=== PATIENT | female | born 1975 | race Caucasian/White ===

== ENCOUNTER 2021-01-07 13:53 | Emergency (ER) | payer OTHER, SELFPAY ==
[2021-01-07] VITALS (17 sets, daily range): BP systolic 107–135; BP diastolic 65–91; PULSE 64–92; RESP 12–20; TEMP 37; O2SAT 98–100
--- NOTE | ~2021-01-07 | XR_ITS ---
EXAMINATION: XR chest 1V portable DATE: 01/07/2021 14:29 INDICATION: Syncope. Chest tightness. TECHNIQUE: frontal view of the chest was obtained. COMPARISON: none FINDINGS: The lungs are clear with no focal airspace opacities, pulmonary edema, pleural effusion or pneumothor ax. The cardiomediastinal silhouette is normal. Visualized bones and soft tissues are unremarkable. IMPRESSION: 1. No acute cardiopulmonary disease. Reviewed, dictated and finalized at location A.
--- NOTE | 2021-01-07 14:02 | ECG_ITS ---
Measurements Intervals [place] Rate: 63 P: 44 CO: 163 QRS: -8 QRSD: 86 T: 23 QT: 426 QTc: 437 Interpretive Statements SINUS RHYTHM BASELINE ARTIFACT- I, II, III, AVR, AVL, AVF, V1-V6 NORMAL ECG Electronically Signed On 01-07-2021 14:40:09 CDT by Julián Longoria D.O.
--- NOTE | 2021-01-07 14:22 | ED.SYNCOPE ---
HPI - Syncope General Chief Complaint: Syncope Stated Complaint: 2 syncopal episodes Time Seen by Provider: 01/07/21 14:03 Source: patient, EMS and RN notes reviewed Mode of arrival: EMS Limitations: no limitations History of Present Illness HPI narrative: This is a healthy 45 year old female who presents for evaluation of a syncopal episode. She states she just received her first dose of covid vaccine when she developed lightheadedness. She reports her head felt heavy so she laid her head on lap. She woke up with people surrounding her because she passed out. EMS reports patient did not want to come but she had another syncopal episode. EMS gave patient LR 250 ml bolus. She feels better but she still has some dizziness. She report throat dryness and some chest tightness. She thinks she got herself worked up. She has had syncopal episodes in the past when she has panic attacks. She reports she felt prior to receiving vaccine today. She has not eaten all day. Related Data Allergies Allergy/AdvReac Type Severity Reaction Status Date / Time No Known Allergies Allergy Verified 01/07/21 14:01 Review of Systems Review of Systems: All systems reviewed & are unremarkable except as noted in HPI and below PMFSH Past Medical History Medical History (Updated 01/07/21 @ 16:12 by Laura Woodward MD) Anxiety Surgical History Surgical History (Updated 01/07/21 @ 14:28 by Laura Woodward MD) H/O tubal ligation History of tonsillectomy and adenoidectomy Social History Social History (Updated 01/07/21 @ 14:28 by Laura Woodward MD) Smoking status: Never smoker Alcohol intake: never Substance use: never Exam Const: General: no acute distress and alert Orientation/consciousness: patient oriented x3 HENMT: Head: normocephalic and atraumatic Face and sinus: normal facial exam, sinuses nontender and face symmetric Mouth: Yes Normal oral and palatal mucosa present, Yes lip normal, Yes oropharynx normal and Yes moist mucous membranes Eyes: Pupils: Equal, round and reactive pupils present EOM: EOMs intact bilaterally Chest: Chest palpation & inspection: normal inspection of the chest Resp: Effort & Inspection: normal respiratory effort and no retractions Auscultation: clear to auscultation bilaterally Cardio: Rate: regular rate Heart sounds: no murmurs GI: GI Palp: Yes Soft to palpation, No Tenderness to palpation present (GI) and No Guarding due to palpation present (GI) Auscultation: normal bowel sounds Back/Spine/Pelvis: Back: no CVA tenderness Skin: General skin exam: normal color Rashes: no rashes Neuro: General: patient oriented x3, moves all extremities and CN's II-XI intact bilaterally Extrem: General: normal to inspection Psych: Mental Status: mental status grossly normal Affect: normal affect Course Reevaluation(s) Reevaluation #1: Patient reports she feels better and she is ready to go home. Labs were unremarkable Date: 01/07/21 Time: 16:09 Vital Signs Vital signs: Vital Signs Temperature 98.6 F 01/07/21 13:55 Pulse Rate 66 01/07/21 13:55 Respiratory Rate 18 01/07/21 13:55 Blood Pressure 107/65 01/07/21 13:55 Pulse Oximetry 100 01/07/21 13:55 Temperature 98.6 F 01/07/21 13:55 Pulse Rate 79 01/07/21 16:15 Respiratory Rate 20 01/07/21 16:15 Blood Pressure 135/91 H 01/07/21 16:15 Pulse Oximetry 98 01/07/21 16:15 MDM - Syncope Lab Data Attestation: I reviewed the patient's lab results. Result diagrams: 01/07/21 14:42 01/07/21 14:42 Labs: Lab Results 01/07/21 01/07/21 01/07/21 Range/Units 14:42 14:42 14:42 WBC 7.9 (4.5-10.0) K/mm3 RBC 3.76 L (4.2-5.4) M/mm3 Hgb 11.5 L (12.0-15.0) g/dL Hct 34.2 L (37.0-47.0) % MCV 91.0 (80-100) fl MCH 30.6 (26-34) pg MCHC 33.6 (32-36) g/dl RDW 13.4 (11.5-14.5) % Plt Count 321 (150-375) k/mm3 MPV 10.1 (7.4
[2021-01-07] MEDS: LACTATED RINGERS 1,000 ML 999 ML IV CONT (14:29)
[2021-01-07 14:52] LABS: Basophils Percent Auto 0.4 % (0.2-1.2); Eosinophils Absolute Auto 0.1 K/mm3 (0-0.3); Eosinophils Percent Auto 0.9 % (0-4.4); Hematocrit 34.2 % (37.0-47.0); Hemoglobin 11.5 g/dL (12.0-15.0); Immature Granulocyte Absolute 0.02 K/mm3 (0.00-0.031); Immature Granulocyte Percent A 0.3 % (0-0.5); Lymphocytes Absolute Auto 1.24 K/mm3 (0.9-3.2); Lymphocytes Percent Auto 15.7 % (18.3-44.2); Mean Corpuscular HGB Conc 33.6 g/dl (32-36); Mean Corpuscular Hemoglobin 30.6 pg (26-34); Mean Platelet Volume 10.1 fl (7.4-10.4); Monocytes Absolute Auto 0.5 K/mm3 (0.1-0.6); Monocytes Percent Auto 6.3 % (2.6-8.5); Neutrophils Percent Auto 76.4 % (45.5-73.1); Platelet Count Result 321 k/mm3 (150-375); Red Blood Count 3.76 M/mm3 (4.2-5.4); Red Cell Distribution Width 13.4 % (11.5-14.5); White Blood Count 7.9 K/mm3 (4.5-10.0)
[2021-01-07 14:59] LABS: INR 1.1
[2021-01-07 15:00] LABS: Partial Thromboplastin Time 21.3 SECONDS (22.3-36.8)
[2021-01-07 15:02] LABS: D Dimer 0.29 ug/mL (<0.48)
[2021-01-07 15:06] LABS: Alanine Aminotransferase 16 U/L (4-35); Albumin Level 4.2 g/dL (3.5-5.1); Alkaline Phosphatase 56 U/L (38-126); Anion Gap 8 mmol/L (8-16); Aspartate Amino Transferase 25 U/L (14-36); Bilirubin,Total 0.7 mg/dL (0.2-1.3); Blood Urea Nitrogen 11 mg/dL (7-17); Calcium 8.9 mg/dL (8.4-10.2); Carbon Dioxide 25 mmol/L (22-30); Chloride 101 mmol/L (98-107); Estimated CRCL calculation 91 ml/min; Estimated Glomerular Filt Rate > 60; Glucose 102 mg/dL (65-110); Magnesium 1.6 mg/dL (1.6-2.3); Sodium 134 mmol/L (137-145)
[2021-01-07 15:12] LABS: Add Urine Microscopic? YES; Appearance Urine Cloudy (Clear); Bacteria Urine Trace /hpf; Bilirubin Urine Negative (Negative); Blood Urine Negative (Negative); Color Urine Yellow (Yellow); Glucose Urine UA Negative (Negative); Ketones Urine Trace mg/dL (Negative); Leukocyte Esterase Ur Negative LEU/UL (Negative); Mucus Urine Few /lpf; Nitrate Urine Negative (Negative); Protein Urine 1+ mg/dL (Negative); Specific Grav Ur 1.027 (1.001-1.035); Squamous Epithelial Cell Urine Few /hpf (Few); WBC Urine 0-3 /hpf
[2021-01-07 15:18] LABS: Troponin I < 0.012 ng/mL (0.000-0.034)
[2021-01-07 16:53] LABS: Amphetamine Screen Urine Negative (Negative); Barbiturate Screen Urine Negative (Negative); Benzodiazepines Screen Urine Negative (Negative); Cannabinoid Screen Urine Negative (Negative); Cocaine Screen Urine Negative (Negative); Methadone Screen Urine Negative (Negative); Opiate Screen Urine Negative (Negative); Phencyclidine Screen Urine Negative (Negative)
== END 2021-01-07 16:58 | disposition home or self-care (01) ==
PROVIDERS: Emergency Provider General Practice
DX: R55 Syncope and collapse (principal)
CPT/HCPCS: 36415; 71045; 80053; 80307; 81001; 81025; 83735; 84484; 85025; 85380; 85610; 85730; 93005; 96360; 99284; J7120

== ENCOUNTER 2021-06-09 07:47 | Emergency (ER) | payer OTHER, SELFPAY ==
--- NOTE | ~2021-06-09 | XR_ITS ---
EXAMINATION: XR chest 2V DATE: 06/09/2021 08:12 INDICATION: Acute chest pain. Syncope. TECHNIQUE: Frontal and lateral views of the chest were obtained. COMPARISON: Chest single view 01/07/2021 FINDINGS: There is mild atelectasis at left lung base. No pleural effusion or pneumothorax. The heart size is normal. IMPRESSION: 1. Mild atelectasis at left lung base. Reviewed, dictated and finalized at location A.
[2021-06-09 07:48] VITALS: BP 117/77; PULSE 60; RESP 16; TEMP 36.1; O2SAT 100
--- NOTE | 2021-06-09 07:54 | ECG_ITS ---
Measurements Intervals [place] Rate: 61 P: 31 AK: 164 QRS: 19 QRSD: 77 T: 28 QT: 409 QTc: 414 Interpretive Statements SINUS RHYTHM COMPARED TO ECG 01/07/2021 14:03:23 NO SIGNIFICANT CHANGES Electronically Signed On 06-09-2021 18:52:41 CDT by Shakira Manley M.D.
--- NOTE | 2021-06-09 07:56 | ED.DIZZY ---
HPI - Dizziness General Chief Complaint: Syncope Stated Complaint: feels ill Time Seen by Provider: 06/09/21 07:53 Source: patient History of Present Illness HPI Narrative: Patient presents with dizziness. Patient reports she woke up feeling dizzy describes her dizziness sensation like she is going to pass as well as a sensation of the room spinning out she got ready for work while she was at work her symptoms got worse. Said work checked her blood pressure and it was 150 systolic which is very high for her and her blood sugar was 80. She says she was anxious about both members that are unusual for her she is breathing heavier dizziness got worse and then she passed out. Reports she was only out for few seconds as coworkers and woke her up. EMS was called on EMS arrival patient reported she continued of symptoms but was feeling improved EMS noted patient appeared pale and route patient continued to have improvement in her symptoms have not completely resolved. She denies any chest pain or shortness of breath. Denies any vomiting or diarrhea. She denies any fevers or known sick contacts. Reports yesterday she was feeling well. Related Data Allergies Allergy/AdvReac Type Severity Reaction Status Date / Time No Known Allergies Allergy Verified 06/09/21 07:56 Review of Systems Review of Systems: CONSTITUTIONAL: Denies fever, chills, or sweats. EYES: Denies visual changes, redness, or discharge. ENT: Denies rhinorrhea, congestion, sore throat, or otalgia. CARDIOVASCULAR: Denies chest pain, palpitations, or edema. RESPIRATORY: Denies cough or dyspnea. GASTROINTESTINAL: Denies abdominal pain, nausea, vomiting, or diarrhea. GENITOURINARY: Denies dysuria or hematuria. SKIN: Denies rash or itching. MUSCULOSKELETAL: Denies back pain, joint pain, or myalgia. NEUROLOGIC: Denies headache, numbness, dizziness, or weakness. PSYCHIATRIC: Denies anxiety or depression. All systems reviewed & are unremarkable except as noted in HPI and below PMFSH Past Medical History Medical History Anxiety Surgical History Surgical History H/O tubal ligation History of tonsillectomy and adenoidectomy Social History Social History Smoking status: Never smoker Alcohol intake: never Substance use: never Exam Narrative: GENERAL: Well-appearing, well-nourished, and in no acute distress. HEAD: Normocephalic, atraumatic. EYES: PERRLA and EOMI. ENT: Nares clear, no rhinorrhea or epistaxis. Mucous membranes moist. NECK: Supple. No masses. No JVD CHEST: Clear to auscultation. No respiratory distress. No wheezes rales or rhonchi HEART: Regular rate and rhythm. No murmur heard. Normal peripheral pulses. ABDOMEN: Soft, nontender, nondistended, normal active bowel sounds. EXTREMITIES: Normal range of motion. No edema. SKIN: Warm, dry, no rash. NEURO: Cranial nerves II through XII are intact patient is 5 out of 5 strength in all extremities sensation intact to light touch in all extremities. Patient ambulates without difficulty alert and oriented x3. PSYCH: Normal mood and affect. Course Reevaluation(s) Reevaluation #1: Patient reports feeling improved results and plan reviewed with patient. Patient is comfortable outpatient plan. Date: 06/09/21 Time: 10:31 Vital Signs Vital signs: Vital Signs Temperature 36.1 C L 06/09/21 07:48 Pulse Rate 60 06/09/21 07:48 Respiratory Rate 16 06/09/21 07:48 Blood Pressure 117/77 06/09/21 07:48 Pulse Oximetry 100 06/09/21 07:48 Temperature 36.1 C L 06/09/21 07:48 Pulse Rate 64 06/09/21 10:40 Respiratory Rate 18 06/09/21 10:40 Blood Pressure 124/76 06/09/21 10:40 Pulse Oximetry 100 06/09/21 10:40 MDM - Dizziness MDM Narrative Medical decision making narrative: H&P as above, vss, pt looks clinically well, exam
[2021-06-09] MEDS: SODIUM CHLORIDE 0.9% IV 1,000 ML 999 ML IV CONT (08:00)
[2021-06-09 08:11] VITALS: PULSE 63
[2021-06-09 08:12] LABS: Basophils Percent Auto 0.7 % (0.2-1.2); Eosinophils Absolute Auto 0.1 K/mm3 (0-0.3); Eosinophils Percent Auto 2.4 % (0-4.4); Hematocrit 38.7 % (37.0-47.0); Hemoglobin 12.4 g/dL (12.0-15.0); Immature Granulocyte Absolute 0.02 K/mm3 (0.00-0.031); Immature Granulocyte Percent A 0.3 % (0-0.5); Lymphocytes Absolute Auto 1.26 K/mm3 (0.9-3.2); Lymphocytes Percent Auto 21.3 % (18.3-44.2); Mean Corpuscular Hemoglobin 30.5 pg (26-34); Mean Corpuscular Volume 95.3 fl (80-100); Mean Platelet Volume 10.4 fl (7.4-10.4); Monocytes Absolute Auto 0.5 K/mm3 (0.1-0.6); Monocytes Percent Auto 7.6 % (2.6-8.5); Neutrophils Percent Auto 67.7 % (45.5-73.1); Platelet Count Result 304 k/mm3 (150-375); Red Blood Count 4.06 M/mm3 (4.2-5.4); Red Cell Distribution Width 13.3 % (11.5-14.5); White Blood Count 5.9 K/mm3 (4.5-10.0)
[2021-06-09 08:24] LABS: Alanine Aminotransferase 16 U/L (4-35); Albumin Level 4.4 g/dL (3.5-5.1); Alkaline Phosphatase 71 U/L (38-126); Anion Gap 10 mmol/L (8-16); Aspartate Amino Transferase 26 U/L (14-36); Bilirubin,Total 0.6 mg/dL (0.2-1.3); Blood Urea Nitrogen 13 mg/dL (7-17); Calcium 8.6 mg/dL (8.4-10.2); Carbon Dioxide 24 mmol/L (22-30); Chloride 105 mmol/L (98-107); Estimated CRCL calculation 90 ml/min; Estimated Glomerular Filt Rate > 60; Glucose 114 mg/dL (65-110); Magnesium 1.9 mg/dL (1.6-2.3); Potassium 3.8 mmol/L (3.4-5.0); Sodium 139 mmol/L (137-145)
[2021-06-09 09:11] LABS: Add Urine Microscopic? YES; Appearance Urine Cloudy (Clear); Bilirubin Urine Negative (Negative); Blood Urine 3+ (Negative); Color Urine Red (Yellow); Glucose Urine UA Negative (Negative); Ketones Urine Negative (Negative); Leukocyte Esterase Ur Negative LEU/UL (Negative); Mucus Urine Few /lpf; Nitrate Urine Negative (Negative); Protein Urine 2+ mg/dL (Negative); RBC Urine >75 /hpf (0-2); Squamous Epithelial Cell Urine Moderate /hpf (Few); Urobilinogen Urine Negative mg/dL (<2.0)
[2021-06-09] MEDS: MECLIZINE HCL 25 MG TABLET PO (09:30)
[2021-06-09 10:40] VITALS: BP 124/76; PULSE 64; RESP 18; O2SAT 100
== END 2021-06-09 10:44 | disposition home or self-care (01) ==
PROVIDERS: Emergency Provider Emergency Medicine
DX: R42 Dizziness and giddiness (principal)
CPT/HCPCS: 36415; 71046; 80053; 81001; 81025; 83735; 85025; 87086; 87088; 93005; 96360; 99284; A9270; J7030